=== PATIENT | female | born 1970 | race Caucasian/White ===

== ENCOUNTER 2023-07-09 13:47 | Inpatient (IN) | payer SELFPAY ==
[2023-07-09] VITALS (27 sets, daily range): PULSE 60; RESP 15; O2SAT 95
[2023-07-10 14:19] VITALS: PULSE 60; RESP 15; O2SAT 95
[2023-07-10 14:20] VITALS: PULSE 60; RESP 15; O2SAT 95
[2023-07-10 14:22] VITALS: PULSE 60; RESP 15; O2SAT 95
[2023-07-10 14:24] VITALS: PULSE 60; RESP 15; O2SAT 95
[2023-07-11] VITALS (10 sets, daily range): PULSE 60; RESP 15; O2SAT 95
== END 2023-07-09 17:18 | disposition home or self-care (01) | DRG 951 ==
DX: R69 Illness, unspecified (principal); Z33.1 Pregnant state, incidental

== ENCOUNTER 2023-08-02 10:38 | Inpatient (IN) | payer SELFPAY ==
[2023-08-02] VITALS (33 sets, daily range): BP systolic 120; BP diastolic 80; PULSE 60; RESP 15; O2SAT 95
[2023-08-06 09:58] VITALS: O2SAT 98
== END 2023-08-08 19:07 | disposition home or self-care (01) | DRG 833 ==
LOC: WP 10:40
PROVIDERS: Admitting Provider Advanced Practice Midwife; Visit Provider Advanced Practice Midwife
DX: O26.90 Pregnancy related conditions, unspecified, unspecified trimester (principal); Z3A.00 Weeks of gestation of pregnancy not specified